=== PATIENT | male | born 1940 | race Caucasian/White ===

== ENCOUNTER → 2018-03-21 | Outpatient (CLI) | payer OTHER | LOC: M.RAD 12:23 | DX: I70.0 Atherosclerosis of aorta (principal); F17.200 Nicotine dependence, unspecified, uncomplicated ==

== ENCOUNTER → 2021-08-20 | Outpatient (CLI) | payer MEDICARE | LOC: M.RAD 13:19 | PROVIDERS: ATTEND Registered Nurse Diabetes Educator | DX: R05.9 Cough, unspecified (principal); Z86.16 Personal history of COVID-19 ==